=== PATIENT | female | born 1990 | race Caucasian/White ===

== ENCOUNTER 2023-03-25 18:05 | Emergency (ER) | payer BC ==
[~2023-03-25] VITALS: Ht 160 cm; Wt 91.0 kg
[2023-03-25 18:15] VITALS: O2SAT 98
[2023-03-25 22:23] VITALS: BP 119/78; PULSE 98; RESP 18; TEMP 98.5
== END 2023-03-25 22:25 | disposition home or self-care (01) ==
LOC: ER 18:05
DX: S93.402A Sprain of unspecified ligament of left ankle, initial encounter (principal); S93.602A Unspecified sprain of left foot, initial encounter; X58.XXXA Exposure to other specified factors, initial encounter; Y93.89 Activity, other specified; Y92.89 Other specified places as the place of occurrence of the external cause; Y99.8 Other external cause status
CPT/HCPCS: 29515; 73610; 73630; 99284